=== PATIENT | female | born 1990 | race Two or more races ===

== ENCOUNTER → 2024-09-29 | Outpatient (CLI) | payer BC, SELFPAY ==
--- NOTE | 2024-09-29 13:30 | XR_ITS ---
Examination: PA lateral chest 2 views TECHNIQUE: Upright PA lateral chest 2 views Date and time: September 26, 2024 1340 hours INDICATIONS: Chest pain 2 weeks. FINDINGS: Normal heart size. Lungs are clear Thoracic dextroscoliosis 15 degrees IMPRESSION: No active disease
== END | disposition home or self-care (01) ==
PROVIDERS: PCP Emergency Medicine; Referring Provider Emergency Medicine; Visit Provider Emergency Medicine
DX: R07.9 Chest pain, unspecified (principal)
CPT/HCPCS: 71046

== ENCOUNTER → 2024-10-02 | Outpatient (CLI) | payer BC, SELFPAY ==
[2024-10-02 09:13] LABS: Basophils % (Auto) 1 % (0-2.5); Eosinophils # (Auto) 0.1 Thou/mm3 (0.0-0.5); Eosinophils % (Auto) 1 % (0-10); Hematocrit 38.7 % (36.0-46.0); Hemoglobin 13.4 g/dL (12.0-16.0); Immature Granulocytes % (Auto) 0 % (0-0); Immature Granulocytes Auto 0.01 Thou/mm3 (0.00-0.00); Lymphocytes # (Auto) 1.9 Thou/mm3 (1.0-4.8); Lymphocytes % (Auto) 34 % (10-50); Mean Corpuscular HGB Conc 34.6 g/dl (31.0-37.0); Mean Corpuscular Hemoglobin 28.3 pg (25.0-35.0); Mean Corpuscular Volume 82 fL (80-100); Monocytes # (Auto) 0.3 Thou/mm3 (0.0-0.8); Monocytes % (Auto) 6 % (0-12); Neutrophils # (Auto) 3.2 Thou/mm3 (1.8-7.7); Neutrophils % (Auto) 58 % (37-80); Nucleated Red Blood Cell % 0 /100 WBC (0); Platelet Count 317 Thou/mm3 (140-440); RDW Standard Deviation 42.4 fL (36.4-46.3); Red Blood Count 4.73 Miln/mm3 (4.00-5.20); White Blood Count 5.6 Thou/mm3 (3.6-11.0)
[2024-10-02 09:36] LABS: Alanine Aminotransferase 11 U/L (10-49); Albumin, Serum 4.6 gm/dL (3.5-5.0); Albumin/Globulin Ratio 2.2 (1.2-2.2); Alkaline Phosphatase 39 U/L (46-116); Anion Gap 11 (7-16); BUN/Creatinine Ratio 9 Ratio (12-20); Bilirubin,Total 0.5 mg/dL (0.3-1.2); Blood Urea Nitrogen 6 mg/dL (9-23); Calcium 9.4 mg/dL (8.3-10.6); Calcium (Corrected) 9.4 mg/dL (8.5-10.1); Carbon Dioxide 27.5 mMol/L (20.0-31.0); Cardiac Risk Estimate 2.6 RATIO (3.7-5.6); Chloride 105 mMol/L (98-107); Cholesterol 197 mg/dL (132-200); Creatinine (Component) 0.7 mg/dL (0.6-1.3); Globulin 2.1 gm/dL (2.3-3.5); Glucose 102 mg/dL (74-106); HDL Cholesterol 76 mg/dL (40-60); LDL Cholesterol,Calculated 107 mg/dL (0-130); Osmolality,Calculated 282 (275-295); Potassium 4.2 mMol/L (3.4-5.1); Sodium 143 mMol/L (136-145); Total Protein 6.7 gm/dL (5.7-8.2); Triglycerides 72 mg/dL (30-150); Troponin I < 0.002 ng/mL (0.0-0.045); eGFR > 60 See Note
[2024-10-02 09:50] LABS: D-Dimer < 250 ng/mL (<600)
== END | disposition home or self-care (01) ==
PROVIDERS: PCP Emergency Medicine; Referring Provider Emergency Medicine; Visit Provider Emergency Medicine
DX: R07.9 Chest pain, unspecified (principal)
CPT/HCPCS: 36415; 80053; 80061; 84484; 85025; 85379

== ENCOUNTER 2024-10-23 11:16 | Emergency (ER) | payer BC, SELFPAY ==
[2024-10-23] VITALS (9 sets, daily range): BP systolic 99–130; BP diastolic 59–85; PULSE 61–100; RESP 16–18; TEMP 36.7–36.8; O2SAT 98–100; BMI 21.9
--- NOTE | 2024-10-23 12:16 | XR_ITS ---
Examination: CT abdomen with intravenous contrast CT pelvis with intravenous contrast 2-D coronal reconstructions 2-D sagittal reconstructions Date and time of exam:October 23, 2024 1532 hours INDICATIONS: Generalized abdominal pain today. CTDI: vol (mGy) 5.87 DLP: (mGycm) 303 Technique: Multiple axial sections of the abdomen and pelvis have been obtained. 64 slice high-resolution scanner used. 3 mm axial sections have been obtained, post intravenous injection 60 cc [id number] 2-D sagittal, coronal reconstructions obtained. Low dose protocols were performed. One or more of the following dose reduction techniques were used; automated exposure control, adjustment of the mA and/or KV according to patient size, use of iterative reconstruction technique. Findings: No focal liver or splenic lesions No gallstones No pancreatic or adrenal mass No renal or ureteral calculi, no hydronephrosis Aorta normal size No bowel obstruction No periappendiceal inflammatory change No pelvic mass There is moderate free fluid in the pelvis Urinary bladder intact IMPRESSION: Normal appendix There is moderate free fluid in the pelvis, recommend pelvic sonography follow-up
[2024-10-23 12:49] LABS: Collection Type, Urine Voided
[2024-10-23 12:54] LABS: Basophils % (Auto) 1 % (0-2.5); Eosinophils % (Auto) 0 % (0-10); Hematocrit 38.9 % (36.0-46.0); Hemoglobin 13.4 g/dL (12.0-16.0); Immature Granulocytes % (Auto) 1 % (0-0); Immature Granulocytes Auto 0.03 Thou/mm3 (0.00-0.00); Lymphocytes # (Auto) 1.9 Thou/mm3 (1.0-4.8); Lymphocytes % (Auto) 30 % (10-50); Mean Corpuscular HGB Conc 34.4 g/dl (31.0-37.0); Mean Corpuscular Volume 81 fL (80-100); Monocytes # (Auto) 0.4 Thou/mm3 (0.0-0.8); Monocytes % (Auto) 7 % (0-12); Neutrophils # (Auto) 3.9 Thou/mm3 (1.8-7.7); Neutrophils % (Auto) 62 % (37-80); Nucleated Red Blood Cell % 0 /100 WBC (0); Platelet Count 339 Thou/mm3 (140-440); RDW Standard Deviation 41.6 fL (36.4-46.3); Red Blood Count 4.79 Miln/mm3 (4.00-5.20); White Blood Count 6.3 Thou/mm3 (3.6-11.0)
[2024-10-23 13:09] LABS: Bilirubin,Urine Negative (Negative); Blood,Urine Negative (Negative); Clarity,Urine Clear (Clear/Hazy); Color,Urine Lt-Yellow (Lt Yel-Yel); Culture Indicated,Urine Not Indicated; Glucose, Urine Negative (Negative); Ketones,Urine 2+ (Negative); Leukocyte Esterase,Urine Negative (Negative); Nitrite,Urine Negative (Negative); Protein,Urine Negative (Neg - Trace); RBC,Urine 6 /hpf (0-3); Specific Gravity,Urine 1.012 (1.001-1.035); Squamous Epithelial Cell,Urine 3 /hpf (0-5); Urobilinogen,Urine Negative mg/dL (0.0-1.0); WBC,Urine 2 /hpf (0-5)
[2024-10-23 13:13] LABS: Alanine Aminotransferase 12 U/L (10-49); Albumin, Serum 4.9 gm/dL (3.5-5.0); Albumin/Globulin Ratio 1.9 (1.2-2.2); Alkaline Phosphatase 40 U/L (46-116); Anion Gap 9 (7-16); Aspartate Amino Transferase 16 U/L (0-34); BUN/Creatinine Ratio 7 Ratio (12-20); Bilirubin,Total 0.5 mg/dL (0.3-1.2); Blood Urea Nitrogen < 5 mg/dL (9-23); Calcium 9.5 mg/dL (8.3-10.6); Calcium (Corrected) 9.5 mg/dL (8.5-10.1); Carbon Dioxide 26.2 mMol/L (20.0-31.0); Chloride 107 mMol/L (98-107); Creatinine (Component) 0.7 mg/dL (0.6-1.3); Estimated Creatinine Clearance 97.8 mL/min (>60); Globulin 2.6 gm/dL (2.3-3.5); Glucose 88 mg/dL (74-106); Lipase 25 U/L (12-53); Osmolality,Calculated 279 (275-295); Potassium 3.8 mMol/L (3.4-5.1); Sodium 142 mMol/L (136-145); Total Protein 7.5 gm/dL (5.7-8.2); eGFR > 60 See Note
[2024-10-23 13:15] LABS: HCG Qualitative,Urine Negative
[2024-10-23] MEDS: SODIUM CHLORIDE 0.9% 1000 ML 1,000 ML 999 ML IV (15:13)
[2024-10-23] MEDS: ONDANSETRON INJ 2 MG/ML INJ 2 ML 4 MG IVP (15:13)
[2024-10-23] MEDS: PANTOPRAZOLE INJ 40 MG VIAL IVP (15:13)
[2024-10-23] MEDS: MORPHINE SULF INJ 10 MG/ML VIAL 4 MG IVP (15:14)
--- NOTE | 2024-10-23 15:56 | PD.EDABDPN ---
ED Abdominal Pain RME/HPI General Chief Complaint: Nausea/Vomiting/Diarrhea Stated complaint: Vomiting today, abdominal pain mid upper Time seen by provider: 10/23/24 12:00 Arrival date/time: 10/23/24 11:16 Related Data Previous Rx's ?Medication ?Instructions ?Recorded acetaminophen 325 mg capsule 975 mg (3 x 325 mg) PO Q6H PRN 11/22/19 pain #30 caps pantoprazole 40 mg tablet,delayed 40 mg PO QDAY #30 tabs 10/23/24 release sucralfate 1 gram tablet 1 g PO BID 14 days #28 tabs 10/23/24 Allergies Allergy/AdvReac Type Severity Reaction Status Date / Time No Known Allergies Allergy Verified 10/23/24 11:22 Course Orders Category Date Time Status CT Screening NOW Care 10/23/24 12:[address] abdomen pelvis w con Stat Exams 10/23/24 12:16 Completed CBC Stat Lab 10/23/24 12:40 Completed CMP [Comprehensive Metabolic Panel] Stat Lab 10/23/24 12:40 Completed HCG Qualitative,Urine Stat Lab 10/23/24 12:38 Completed Lipase Stat Lab 10/23/24 12:40 Completed Urinalysis, C/S if Indicated Stat Lab 10/23/24 12:38 Completed Morphine Inj Med 10/23/24 12:16 Discontinued 4 mg IVP X1 ONE Ondansetron Inj [Zofran Inj] Med 10/23/24 12:16 Discontinued 4 mg IVP X1 ONE Pantoprazole Inj [Protonix Inj] Med 10/23/24 12:16 Discontinued 40 mg IVP X1 ONE Sodium Chloride 0.9% 1000 ml [Ns] 1,000 ml Med 10/23/24 12:17 Discontinued IV 999 mls/hr Vital Signs Vital signs: Vital Signs Temperature 98.1 F 10/23/24 11:48 Pulse Rate 100 10/23/24 11:48 Respiratory Rate 16 10/23/24 11:48 Blood Pressure 123/85 H 10/23/24 11:48 Pulse Oximetry (%) 98 10/23/24 11:48 Oxygen Delivery Method Room Air 10/23/24 11:48 Abdominal Pain MDM Medications / Prescriptions Medication administrations:: Medication Administration History Discontinued Medications Sodium Chloride (Ns) 1,000 mls @ 999 mls/hr IV .Q1H1M ONE Stop: 10/23/24 13:17 Last Infusion: 10/23/24 15:53 Dose: Infused Documented By: Admin: 10/23/24 15:13 Dose: 999 mls/hr Documented By: CG Morphine Sulfate (Morphine Sulf Inj 10 Mg/Ml Vial) 4 mg IVP X1 ONE Stop: 10/23/24 12:17 Last Admin: 10/23/24 15:14 Dose: 4 mg Documented By: CG Ondansetron HCl (Ondansetron Inj 2 Mg/Ml Inj 2 Ml) 4 mg IVP X1 ONE; Protocol Stop: 10/23/24 12:17 Last Admin: 10/23/24 15:13 Dose: 4 mg Documented By: CG Pantoprazole Sodium (Pantoprazole Inj 40 Mg Vial) 40 mg IVP X1 ONE Stop: 10/23/24 12:17 Last Admin: 10/23/24 15:13 Dose: 40 mg Documented By: CG Discharge Plan Plan Patient Disposition: HOME (Self Care) Prescriptions/Referrals Prescriptions/Med Rec: New pantoprazole 40 mg tablet,delayed release (DR/EC) 40 mg PO QDAY Qty: 30 0RF sucralfate 1 gram tablet 1 g PO BID 14 Days Qty: 28 0RF No Action acetaminophen 325 mg capsule 975 mg PO Q6H PRN (Reason: pain) Qty: 30 0RF Referrals: Kalli Schulz PA-C [Primary Care Provider] - In 1 week Problem List Clinical Impression: Gastroenteritis, Acute gastritis Patient/Caregiver Discharge Instructions Education Materials: Treating Gastritis, Understanding Gastritis, ED Gastritis (Adult), ED Gastroenteritis, Noninfectious, ED PEPTIC ULCER vs GASTRITIS Additional Instructions: talk to your PCP regarding H. Pylori test and endoscopy Print Language: Khmer Stand Alone Forms: Natasha Award Info., Patient Portal Info Letter
--- NOTE | 2024-10-23 16:31 | EDNOTE_ITS ---
ED Abdominal Pain RME/HPI General Chief Complaint: Nausea/Vomiting/Diarrhea Stated complaint: Vomiting today, abdominal pain mid upper Time seen by provider: 10/23/24 12:00 Arrival date/time: 10/23/24 11:16 Limitations: no limitations RME / HPI RME / HPI narrative: 34 year old female with no stated medical history presents to the ED for evaluation of abdominal pain today. Reportedly has had abdominal pain for 1 month, located throughout but most over epigastric region. Accompanied by nausea, intermittent episodes of vomiting, decreased appetite, and loose nonbloody nonmucousy stools. States she has taken over the counter medications with no improvement. Denies consulting with PCP. Denies fever, chills, chest pain, cough, or urinary symptoms. LMP was 5 days ago. Related Data Previous Rx's ?Medication ?Instructions ?Recorded acetaminophen 325 mg capsule 975 mg (3 x 325 mg) PO Q6 H PRN 11/22/19 pain #30 caps metronidazole 500 mg tablet 500 mg PO Q8H 7 days #21 t abs 10/23/24 ondansetron 4 mg disintegrating 4 mg PO Q8H PRN Nausea 7 days #20 10/23/24 tablet tabs pantoprazole 40 mg tablet,delayed 40 mg PO QDAY #30 ta bs 10/23/24 release pantoprazole 40 mg tablet,delayed 40 mg PO QDAY #30 ta bs 10/23/24 release (Protonix) paromomycin 250 mg capsule 500 mg (2 x 250 mg) PO TID 5 days 10/23/24 #30 caps sucralfate 1 gram tablet 1 g PO BID 14 days #28 tabs 10/23/24 Allergies Allergy/AdvReac Type Severity Reaction Status Date / Time No Known Allergies Allergy Verified 10/23/24 11:22 Review of Systems Review of Systems Systems Reviewed: All systems reviewed, normal except as documented Past Medical History Past Medical History CARDIAC: Negative Cardiac Disorders RESPIRATORY: Negative Asthma GENITOURINARY: Negative Renal Disease ENDOCRINE: Negative Diabetes Mellitus Type 2 HEMATOLOGIC: Negative Sickle Cell Disease Social History SMOKING STATUS: Never smoker ED Exam General Limitations: Present no limitations General appearance: Present alert and in no apparent distress Head Head exam: Present atraumatic, normocephalic and normal inspection Eye Eye exam: Present normal appearance, PERRL and EOMI ENT ENT exam: Present normal exam, normal oropharynx and mucous membranes moist Neck Neck exam: Present normal inspection, full ROM and trachea midline Chest Chest inspection: Present normal inspection and symmetric chest wall rise Respiratory Respiratory exam: Present normal lung sounds bilaterally Cardiovascular Cardiovascular exam: Present regular rate, normal rhythm and normal heart sounds Abdominal Exam Abdominal exam: Present soft and normal bowel sounds; Absent tenderness, guarding, rebound or rigidity Extremities Exam Extremities exam: Present normal inspection and full ROM Back Exam Back exam: Present normal inspection and full ROM Neurological Exam Neurological exam: Present alert, oriented X3 and CN II-XII intact Psychiatric Psychiatric exam: Present normal affect and normal mood Skin Skin exam: Present warm, dry, intact and normal color Course Quality Measures none Orders Category Date Time Status CT Screening NOW Care 10/23/24 12:[address] abdomen pelvis w con Stat Exams 10/23/24 12:16 Completed CBC Stat Lab 10/23/24 12:40 Completed CMP [Comprehensive Metabolic Panel] Stat Lab 10/23/24 12:40 Completed Giardia Antigen, EIA, Stool* Stat Lab 10/23/24 Ordered HCG Qualitative,Urine Stat Lab 10/23/24 12:38 Completed Lipase Stat Lab 10/23/24 12:40 Completed Ova & Parasites, Conc, Smear* Stat Lab 10/23/24 17:20 Ordered Stool Culture Stat Lab 10/23/24 17:08 Ordered Urinalysis, C/S if Indicated Stat Lab 10/23/24 12:38 Completed HYDROmorphone INJ [Dilaudid Inj] Med 10/23/24 16:56 Discontinued 1 mg IVP X1 ONE Morphine Inj Med 10/23/24 12:16 Discontinued 4 mg IVP X1 ONE Ondansetron Inj [Zofran Inj] Med 10/23/24 12:16 Discontinued 4 mg IVP X1 ONE Pantoprazole Inj [Protonix Inj] Med 10/23/24 12:16 Discontinued 40 mg IVP X1 ONE Sodium Chloride 0.9% 1000 ml [Ns] 1,000 ml Med 10/23/24 12:17 Discontinued IV 999 mls/hr Vital Signs Vital signs: Vital Signs Temperature 98.1 F 10/23/24 11:48 Pulse Rate 100 10/23/24 11:48 Respiratory Rate 16 10/23/24 11:48 Blood Pressure 123/85 H 10/23/24 11:48 Pulse Oximetry (%) 98 10/23/24 11:48 Oxygen Delivery Method Room Air 10/23/24 11:48 Pulse ox is 98% on room air which is adequate. Abdominal Pain MDM MDM Narrative MDM Narrative:: Nohemi Trujillo am scribing for and in the presence of Dr. Brito. Patient data External records reviewed:: [facility] previous records Clinical information provided by:: patient Social determinants that could affect healthcare access:: none Patient has the following chronic illnesses:: None How is presenting disease/condition affected by chronic disease/condition?: no chronic disease Evaluation data The following diagnostics were reviewed and interpreted by me:: lab results and radiology exam(s) Lab and/or radiology exams considered but not ordered:: None Medications / Prescriptions Medications or Prescriptions considered but not ordered:: None Medication administrations:: Medication Administration History Discontinued Medications Hydromorphone HCl (Hydromorphone Inj 2 Mg/Ml Vial) 1 mg IVP X1 ONE Stop: 10/23/24 16:57 Sodium Chloride (Ns) 1,000 mls @ 999 mls/hr IV .Q1H1M ONE Stop: 10/23/24 13:17 Last Infusion: 10/23/24 15:53 Dose: Infused Documented By: Admin: 10/23/24 15:13 Dose: 999 mls/hr Documented By: CG Morphine Sulfate (Morphine Sulf Inj 10 Mg/Ml Vial) 4 mg IVP X1 ONE Stop: 10/23/24 12:17 Last Admin: 10/23/24 15:14 Dose: 4 mg Documented By: CG Ondansetron HCl (Ondansetron Inj 2 Mg/Ml Inj 2 Ml) 4 mg IVP X1 ONE; Protocol Stop: 10/23/24 12:17 Last Admin: 10/23/24 15:13 Dose: 4 mg Documented By: CG Pantoprazole Sodium (Pantoprazole Inj 40 Mg Vial) 40 mg IVP X1 ONE Stop: 10/23/24 12:17 Last Admin: 10/23/24 15:13 Dose: 40 mg Documented By: CG See above Consultations Consultation(s) initiated? (list below): No Diagnosis Differential diagnosis abdominal pain: abdominal pain, calculus of kidney, diverticulitis and gastroenteritis Most likely diagnosis given after review of the tests above:: Gastroenteritis Acute gastritis Admission Indicated Admission indicated?: not indicated Admission Request Was there a request for admission?: No Disposition Plan Disposition Plan: Discharge Discharge Attestation Discharge Attestation: The patient and all family members were given an opportunity to ask questions and understood the discharge instructions. Discharge instructions specifically effects, indications for sooner follow up or return to the emergency department, and the expected course of current diagnosis. Patient condition: Stable Discharge Plan Plan Patient Disposition: HOME (Self Care) Prescriptions/Referrals Prescriptions/Med Rec: New pantoprazole 40 mg tablet,delayed release (DR/EC) 40 mg PO QDAY Qty: 30 0RF sucralfate 1 gram tablet 1 g PO BID 14 Days Qty: 28 0RF pantoprazole [Protonix] 40 mg tablet,delayed release (DR/EC) 40 mg PO QDAY Qty: 30 0RF metronidazole 500 mg tablet 500 mg PO Q8H 7 Days Qty: 21 0RF paromomycin 250 mg capsule 500 mg PO TID 5 Days Qty: 30 0RF ondansetron 4 mg tablet,disintegrating 4 mg PO Q8H PRN (Reason: Nausea) 7 Days Qty: 20 0RF No Action acetaminophen 325 mg capsule 975 mg PO Q6H PRN (Reason: pain) Qty: 30 0RF Referrals: Kalli Schulz PA-C [Primary Care Provider] - In 1 week Problem List Clinical Impression: Gastroenteritis, Acute gastritis Patient/Caregiver Discharge Instructions Education Materials: Treating Gastritis, ED Gastritis (Adult), ED Gastroenteritis, Noninfectious, ED PEPTIC ULCER vs GASTRITIS Additional Instructions: talk to your PCP regarding H. Pylori test and endoscopy Make sure to follow-up with your PCP about the results of the stool culture Take both the Protonix and the antibiotics Use Zofran to treat nausea Print Language: Martiniquais Stand Alone Forms: Natasha Award Info., Patient Portal Info Letter
== END 2024-10-23 17:41 | disposition home or self-care (01) ==
PROVIDERS: Physician Assistant; Emergency Provider Emergency Medicine; PCP Physician Assistant
DX: K52.9 Noninfective gastroenteritis and colitis, unspecified (principal); K29.00 Acute gastritis without bleeding
CPT/HCPCS: 36415; 74177; 80053; 81001; 81025; 83690; 85025; 87015; 87045; 87046; 87177; 87209; 87329; 87899; 96361; 96374; 96375; 99285; A4649; J2270; J2405; J2470; J7030; Q9967

== ENCOUNTER → 2024-10-26 | Outpatient (CLI) | payer BC, SELFPAY | END | disposition home or self-care (01) | LOC: COPL 15:47 | PROVIDERS: PCP Family Medicine; Referring Provider Family Medicine; Visit Provider Family Medicine | DX: K59.1 Functional diarrhea (principal) | CPT/HCPCS: 87015; 87045; 87046; 87177; 87209; 87899 ==